=== PATIENT | male | born 1935 | race Hispanic/Latino ===

== ENCOUNTER 2019-01-01 13:04 | Emergency (ER) | payer OTHER ==
[2019-01-01] MEDS ORDERED: HYDROCODONE/ACETAMINOPHEN 5/325 MG TAB ONE (14:51)
[2019-01-01] MEDS ORDERED: ONDANSETRON ODT 4 MG TAB ONE (14:51)
== END 2019-01-01 15:25 | disposition home or self-care (01) ==
LOC: EDH 13:04
DX: M26.69 Other specified disorders of temporomandibular joint (principal)
CPT/HCPCS: 70328; 93005